=== PATIENT | male | born 1940 | race Caucasian/White ===

== ENCOUNTER → 2020-03-15 | Outpatient (CLI) | payer MEDICARE, OTHER ==
[~2020-03-15] MED LIST: ASPI81CH; CLOP75; FINA5; FISH1000; KETO15TC; LATA.005SO; METO25ER PO; NITR.4SL; OMEP20ER; TAMS.4ER; TIMO.25OPS BOTHEYES
[2020-03-15 09:41] LABS: BASOPHILS ABSOLUTE AUTO 0.13 K/mm3 (0.00-0.23); BASOPHILS PERCENT AUTO 1 % (0-2); EOSINOPHILS PERCENT AUTO 4 % (0-6); Hematocrit 45.3 % (37.0-53.0); Hemoglobin 15.5 g/dL (13.5-17.5); IMMATURE GRAN ABSOLUTE AUTO 0.05 K/mm3 (0.00-0.10); IMMATURE GRAN PERCENT AUTO 0 % (0-1); LYMPHOCYTES ABSOLUTE AUTO 2.71 K/mm3 (0.84-5.20); LYMPHOCYTES PERCENT AUTO 24 % (21-46); MONOCYTES ABSOLUTE AUTO 1.11 K/mm3 (0.16-1.47); MONOCYTES PERCENT AUTO 10 % (4-13); Mean Corpuscular HGB Conc 34.2 g/dL (31.5-36.5); Mean Corpuscular Volume 88 fL (80-100); Mean Platelet Volume 10.9 fL (9.1-12.4); NEUTROPHILS ABSOLUTE AUTO 6.89 K/mm3 (1.96-9.15); NEUTROPHILS PERCENT AUTO 61 % (41-73); Platelet Count 300 K/mm3 (150-400); RDW Coefficient Variation 13.8 % (11.7-14.2); RDW Standard Deviation 43.6 fL (35.1-46.3); Red Blood Cell Count 5.17 M/mm3 (4.30-5.90); White Blood Cell Count 11.29 K/mm3 (4.00-11.30)
[2020-03-15 10:08] LABS: Alanine Aminotransfer (ALT/SGP 48 U/L (12-78); Albumin/Globulin Ratio 1.1 (0.8-1.8); Alk Phos 51 U/L (40-126); Anion Gap 11 mmol/L (6-16); Aspartate Aminotrans (AST/SGOT 28 U/L (12-37); Bilirubin, Total 0.5 mg/dL (0.1-1.0); Blood Urea Nitrogen 14 mg/dL (8-24); Bun/Creatinine Ratio 14.7 (12.0-20.0); CO2, Blood 26 mmol/L (21-32); Chloride, Blood 103 mmol/L (98-108); Creatinine, Blood 0.95 mg/dL (0.60-1.20); Globulin, Blood 3.5 g/dL (2.2-4.0); Glomerular Filtration Rate >60 (60-); Glucose, Blood 111 mg/dL (70-99); Potassium, Blood 4.1 mmol/L (3.5-5.5); Sodium, Blood 140 mmol/L (136-145); Total Protein, Blood 7.5 g/dL (6.4-8.2)
== END | disposition home or self-care (01) ==
LOC: LAB SHORT 09:19 → LAB EV 09:19
PROVIDERS: Internal Medicine Rheumatology
DX: Z11.59 Encounter for screening for other viral diseases (principal); L12.1 Cicatricial pemphigoid
CPT/HCPCS: 36415; 80053; 85025; 86140; U0003

== ENCOUNTER → 2021-11-04 | Outpatient (CLI) | payer MEDICARE ==
[2021-11-04 16:45] LABS: Body Fluid Crystals NEG (NEGATIVE)
[2021-11-04 16:59] LABS: RBC Count, Synovial Fluid 40000 /mm3 (0-0); WBC Count, Synovial Fluid 321 /mm3 (0-180)
[2021-11-04 17:50] LABS: Eos, Synovial Fluid 1 % (0-2); Lymphs, Synovial Fluid 19 % (0-15); Monocytes/Macrophages, Synovia 59 % (0-65); Neutrophils, Synovial Fluid 21 % (0-24)
[2021-11-04 17:51] LABS: Appearance, Synovial Fluid Cloudy (Clear); Color, Synovial Fluid Red (None-P Yel)
== END | disposition home or self-care (01) ==
LOC: LAB SHORT 16:00
PROVIDERS: Hospitalist
DX: M70.22 Olecranon bursitis, left elbow (principal)
CPT/HCPCS: 87070; 87075; 87205; 89051; 89060